=== PATIENT | male | born 1985 | race Hispanic/Latino ===

== ENCOUNTER 2017-06-24 17:48 | Emergency (ER) | payer OTHER ==
[2017-06-24 17:54] VITALS: BP 126/86; PULSE 80; RESP 18; O2SAT 98
--- NOTE | 2017-06-24 20:32 | ED.REPORT ---
HPI-Neurologic Deficit Date of Service Jun 24, 2017 ED Provider: Karl Arora MD The pt is a 31 y/o male with no pertinent hx who presents to the ED complaining of left sided facial weakness, onset 3 days ago. Associated sx include "3/10" occiput headache. He denies difficulty talking and waking, and decreased sensation in the face. Nursing Notes Stated Complaint: LEFT SIDE OF FACE IS PARALIZED Chief Complaint: Neuro Symptoms/ Deficits Nursing Notes Reviewed: Yes Allergies: Coded Allergies: No Known Allergies (Unverified , 06/24/17) Scheduled Prednisone (PredniSONE) 20 Mg Tablet 60 MG PO DAILY Valacyclovir (Valacyclovir) 1,000 Mg Tablet 1,000 MG PO TID Scheduled PRN Mineral Oil/Petrolatum,White (Artificial Tears Eye Oint) 3.5 Gm Tube 1 APPLIC LEFT_EYE DIRECTED PRN PRN dry eye General Time Seen by Provider: 21:04 Chief Complaint Other (left sided facial weakness) Hx Obtained From: Patient, Spouse Arrived By: Walk-in Sudden in Onset?: Yes Onset Occurred: 3 days ago Symptom Duration: Since onset Location: : Head Quality: Painful Radiation: : Does not radiate Severity: Current: Pain level 3 out of 10 Severity: Maximum: Moderate Recent Healthcare: No recent doctor visit Past Medical History Past Medical History none reported Past Surgical History none reported Social History Other Social History: Good social support Ambulatory Status Independent Review of Systems Denies: decreased sensation in the face Neurologic: Reports: Headache, Weakness (left side of the face ), Denies: Problem walking, Unable to speak Complete sys rev & neg: except as marked. Physical Exam Initial Vital Signs Vital Signs (First) Date Time Temp Pulse Resp B/P Pulse Ox O2 Delivery O2 Flow Rate FiO2 06/24/17 17:54 36.6 80 18 126/86 98 Room Air Initial VS: Reviewed Neck: Supple, Non-tender, Full range of motion Abdomen / GI: Soft, Non-tender, No guarding, No rebound, No distention Extremities: Vascular intact, Neuro intact, No swelling, No tenderness Skin: Warm, Dry, No cyanosis General/Constitutional: Awake, Alert, Cooperative Head / Eyes: Atraumatic, PERRL, EOMI Obvious facial palsy on the left Respiratory / Chest: Atraumatic, Breath sounds NL, Breath sounds = bilat, No respiratory distress, No rales, No rhonchi, No wheezing Cardiovascular: Heart rate NL, Regular rhythm, Heart sounds NL, No gallop, No murmurs, No rubs Neurologic: Oriented X3, Speech NL, No motor deficits, No sensory deficits, Gait NL (ambulatory with a steady gait) Hourly Team Members normal and symmetric. Forehead involved in L facial palsy Interpretation & Diagnostics Lab Results Interpretation Result Diagram: 06/24/17204006/24/172040 Test 06/24/17 20:41 White Blood Count 8.9th/mm3 (3.8-10.1) Red Blood Count 5.00mil/mm3 (4.40-5.80) Hemoglobin 15.3g/dL (13.8-17.2) Hematocrit 43.0% (41.0-50.0) Mean Corpuscular Volume 86.0fL (81-100) Mean Corpuscular Hemoglobin 30.6pg (27.0-35.0) Mean Corpuscular Hemoglobin Concent 35.6% (32.0-37.0) Red Cell Distribution Width 12.1% (12.3-15.4) Platelet Count 295bil/L (150-400) Neutrophils (%) (Auto) 47.4% (40-74) Lymphocytes (%) (Auto) 41.2% (14-46) Monocytes (%) (Auto) 9.8% (4-12) Eosinophils (%) (Auto) 1.3% (0-5) Basophils (%) (Auto) 0.2% (0-3) Prothrombin Time 10.2sec (8.1-12.5) Prothromb Time International Ratio 0.95ratio Sodium Level 140mEq/L (134-144) Potassium Level 3.8mEq/L (3.5-5.2) Chloride Level 102mEq/L (97-108) Carbon Dioxide Level 24mmol/L (18-29) Blood Urea Nitrogen 14mg/dL (6-20) Creatinine 0.57mg/dL (0.76-1.27) Estimat Glomerular Filtration Rate 175mL/min (>59) Glucose Level 93mg/dL (60-99) Calcium Level 9.6mg/dL (8.5-10.1) Magnesium Level 2.0mg/dL (1.6-2.6) Total Bilirubin 0.9mg/dL (0.0-1.2) Aspartate Amino Transf (AST/SGOT) 30U/L (0-50) Alanine Aminotransferase (ALT/SGPT) 43U/L (0-44) Alkaline Phosphatase 89U/L (25-150) Total Protein 7.7g/dL (6.4-8.4) Albumin 4.5g/dL (3.4-5.0) Hold Cole Top Tube Received (Received) Re-Eval/Medical Decision Re-Evaluation/Progress : Time of Eval: 21:09 Re-Evaluation/Progress Note: Rechecked pt. Discussed lab results, diagnosis and plan to discharge. Pt understands and agrees with the plan. F/U instruction and RTER warning given. All questions addressed. Counseled Regarding: Diagnosis, Lab results, Need for follow-up, When/why to return to ED Discharge & Departure Impression: Primary Impression: Wells's palsy Disposition: Home Patient Instructions: Wells Palsy (ED) Additional Instructions: Emergency Department evaluation included interview and examination. We also did some labs which were normal. This condition generally resolves within 3 months. Take prednisone and valacyclovir as prescribed, these medicines were started tonight. Use Lacri-Lube ointment to keep eye from drying out especially at night. Call for a follow-up appointment at [facility] soon. Return emergency Department for severe headache, vomiting, new weakness. Referrals: [facility] Scribe Attestation Portions of this note were transcribed by Jaqueline Caballero. I,, personally performed the history,physical exam and medical decision-making;I reviewed and confirmed the accuracy of the information in the transcribed note. Signed by Alex Paulino. 06/24/17 copies to: [facility] Karl Arora MD Jun 24, 2017 20:32 Jaqueline Caballero Jun 24, 2017 21:11
[2017-06-24 20:44] LABS: BASOPHILS % (AUTO) 0.2 % (0-3); EOSINOPHILS % (AUTO) 1.3 % (0-5); MONOCYTES % (AUTO) 9.8 % (4-12); Mean Corpuscular Hemoglobin 30.6 pg (27.0-35.0); NEUTROPHILS % (AUTO) 47.4 % (40-74); Platelet Count 295 bil/L (150-400)
[2017-06-24 20:59] LABS: INR 0.95 ratio
[2017-06-24] MEDS ORDERED: predniSONE 20 mg Tablet PO ONE (21:15)
[2017-06-24] MEDS ORDERED: VALA100026 PO (21:47)
[2017-06-24] MEDS ORDERED: PRE20 PO (21:47)
[2017-06-24] MEDS ORDERED: MINE3.5O28 LEFT_EYE (21:47)
[2017-06-24 22:10] VITALS: BP 126/64; PULSE 84; RESP 14; O2SAT 98
== END 2017-06-24 22:25 | disposition home or self-care (01) ==
LOC: SED 17:48
DX: G51.0 Bell's palsy (principal)